=== PATIENT | male | born 1995 | race Hispanic/Latino ===

== ENCOUNTER 2023-03-14 08:21 | Emergency (ER) | payer SELFPAY ==
[~2023-03-14] VITALS: Ht 170.2 cm; Wt 63.0 kg
[2023-03-14 08:37] VITALS: BP 117/74
[2023-03-14 09:23] LABS: BASO% 0.3 % (0-3); EOS% 1.3 % (0-8); HEMATOCRIT 43.6 % (39.0-50.0); HEMOGLOBIN 14.1 g/dl (14.0-18.0); LYMPH% 30.7 % (15-41); MEAN CORPUSCULAR HGB 30.1 pG CALC (26.0-32.0); MEAN CORPUSCULAR HGB CONC 32.3 g/dL CAL (32.0-36.0); MONO% 4.5 % (2-13); NEUT# 2.41 thou/uL (1.82-7.42); NEUT% 63.2 % (42-76); RED BLOOD COUNT 4.69 mill/uL (4.70-6.10); RED CELL DISTRI WIDTH 11.8 % (11.5-15.5)
[2023-03-14 09:28] LABS: ALBUMIN 4.9 g/dL (3.2-5.0); ALKALINE PHOSPHATASE 66 u/l (38-126); ANION GAP 14 (6-22 (CALC)); BILIRUBIN, TOTAL 0.5 mg/dL (0.2-1.3); BUN 20 mg/dL (9-20); BUN/CREATININE RATIO 32 (12-20 (CALC)); CARBON DIOXIDE 26 mmol/l (22-30); CHLORIDE 104 mmol/l (95-108); CREATININE 0.6 mg/dL (0.7-1.3); GFR FOR AFR.AMER. > 60 ML/MIN (>=60 (CALC)); GFR OTHER RACES > 60 ML/MIN (>=60 (CALC)); SGOT/AST 30 u/l (17-59); SODIUM 140 mmol/l (137-146); TOTAL PROTEIN 7.7 g/dL (6.3-8.2)
[2023-03-14 10:22] LABS: URINE BILIRUBIN - DIPSTICK NEGATIVE (NEGATIVE); URINE BLOOD DIPSTICK NEGATIVE (NEGATIVE); URINE COLOR YELLOW; URINE GLUCOSE - DIPSTICK NEGATIVE (NEGATIVE); URINE KETONE NEGATIVE (NEGATIVE); URINE LEUK ESTERASE NEGATIVE (NEGATIVE); URINE PROTEIN - DIPSTICK NEGATIVE (NEG-TRACE); URINE UROBILINOGEN - DIPSTICK 0.2 E.U./dL (0.2)
[2023-03-14 10:26] LABS: URINE NITRITE - DIPSTICK NEGATIVE (Negative)
[2023-03-14] MEDS ORDERED: CVS OMEPRAZOLE20 MG PO (10:38)
[2023-03-14 10:42] VITALS: BP 128/68
== END 2023-03-14 10:46 | disposition home or self-care (01) | DRG 392 ==
LOC: ED 08:21
PROVIDERS: Family Medicine
DX: R10.9 Unspecified abdominal pain (principal)